=== PATIENT | male | born 1990 | race Caucasian/White ===

== ENCOUNTER 2018-11-15 13:57 | Emergency (ER) | payer SELFPAY ==
[2018-11-15] MEDS ORDERED: traMADol 50 MG Tab PO ONE (14:33)
[2018-11-15] MEDS ORDERED: Ketorolac 60 MG/2 ML SDV IM ONE (14:33)
[2018-11-15] MEDS ORDERED: Acetaminophen 325 MG Tab PO ONE (14:33)
--- NOTE | 2018-11-15 16:12 | EDM.PDOC ---
ED HPI GENERAL MEDICAL PROBLEM - General Chief Complaint: General Stated Complaint: GROIN PAIN Time Seen by Provider: 11/15/18 14:22 Source of Information: Reports: Patient, RN Notes Reviewed - History of Present Illness INITIAL COMMENTS - FREE TEXT/NARRATIVE: 28-year-old male had onset of left testicular and scrotal pain this morning about 6 hours ago. That continues with radiation of pain to the left groin and even left lower abdomen. He has never had anything like this before. He has had some mild nausea but no vomiting. Symptomatology. Or chills. He is not aware of any injury. He is not concerned about any STD exposure. No unusual urethral drainage or discharge. Groin Pain Score (Numeric/FACES): 10 - Related Data Allergies Allergy/AdvReac Type Severity Reaction Status Date / Time No Known Allergies Allergy Verified 11/15/18 14:07 Home Meds: Home Meds Doxycycline [Vibramycin] 100 mg PO BID #14 tab 11/15/18 [Rx] Naproxen [Naprosyn] 500 mg PO Q12HR #14 tab 11/15/18 [Rx] traMADol [Ultram] 50 mg PO Q6H PRN #14 tab 11/15/18 [Rx] Past Medical History - Past Health History Medical/Surgical History: Denies Medical/Surgical History Social & Family History - Tobacco Use Smoking Status *Q: Current Every Day Smoker Years of Tobacco use: 12 Packs/Tins Daily: 1 - Caffeine Use Caffeine Use: Reports: Soda - Recreational Drug Use Recreational Drug Use: No ED ROS GENERAL - Review of Systems Review Of Systems: See Below Constitutional: Denies: Fever, Chills HEENT: Denies: Throat Pain Respiratory: Reports: No Symptoms Cardiovascular: Denies: Chest Pain GI/Abdominal: Reports: Nausea. Denies: Abdominal Pain, Vomiting Musculoskeletal: Reports: No Symptoms Skin: Denies: Rash Neurological: Reports: No Symptoms ED EXAM, GENERAL - Physical Exam Exam: See Below General Appearance: Alert, Mild Distress Throat/Mouth: Normal Inspection Respiratory/Chest: No Respiratory Distress, Lungs Clear Cardiovascular: Regular Rate, Rhythm GI/Abdominal: Soft, Non-Tender, No Mass (Male) Exam: No Hernia, Scrotum Tenderness (L), Testicular Tenderness (L). No: Scrotal Swelling Extremities: Normal Inspection, Normal Range of Motion Neurological: Alert, Oriented, No Motor/Sensory Deficits Skin Exam: Warm, Dry, Normal Color Course - Vital Signs Last Recorded V/S: Last Vital Signs Temp 96.3 F 11/15/18 14:06 Pulse 77 11/15/18 14:06 Resp 15 11/15/18 14:06 BP 137/85 11/15/18 14:06 Pulse Ox 100 11/15/18 14:06 - Orders/Labs/Meds Labs: Laboratory Tests 11/15/18 Range/Units 16:15 Urine Color Yellow (Yellow) Urine Appearance Clear (Clear) Urine pH 6.5 (5.0-8.0) Ur Specific [place] 1.015 (1.005-1.030) Urine Protein Negative (Negative) Urine Glucose (UA) Negative (Negative) Urine Ketones Negative (Negative) Urine Occult Blood Negative (Negative) Urine Nitrite Negative (Negative) Urine Bilirubin Negative (Negative) Urine Urobilinogen 0.2 (0.2-1.0) Ur Leukocyte Esterase Negative (Negative) Urine RBC Not seen (0-5) /hpf Urine WBC Not seen (0-5) /hpf Ur Squamous Epith Cells Not seen (0-5) /hpf Urine Bacteria Occasional (FEW) /hpf Urine Mucus Few (FEW) /hpf Meds: Medications Discontinued Medications Generic Name Dose Route Start Last Admin Trade Name Morenita PRN Reason Stop Dose Admin Acetaminophen 975 mg 11/15/18 14:33 11/15/18 14:39 Tylenol PO 11/15/18 14:34 975 mg NOW ONE Administration Ketorolac Tromethamine 60 mg 11/15/18 14:33 11/15/18 14:39 Toradol IM 11/15/18 14:34 60 mg ONETIME ONE Administration Tramadol HCl 50 mg 11/15/18 14:33 11/15/18 14:39 Ultram PO 11/15/18 14:34 50 mg ONETIME ONE Administration - Re-Assessments/Exams Free Text/Narrative Re-Assessment/Exam: 11/17/18 21:05 Ultrasound, urine did come back normal, I am going to put him on doxycycline. Discharge instructions as documented Departure - Departure Time of Disposition: 18:27 Disposition: Home, Self-Care 01 Condition: Fair Clinical Impression: Epididymitis - Discharge Information Prescriptions: Naproxen [Naprosyn] 500 mg PO Q12HR #14 tab Doxycycline [Vibramycin] 100 mg PO BID #14 tab traMADol [Ultram] 50 mg PO Q6H PRN #14 tab PRN Reason: Pain Instructions: Epididymitis Referrals: PCP,None [Primary Care Provider] - Forms: ED Department Discharge Additional Instructions: Doxycycline 100 mg twice daily for 1 week, Naprosyn 500 mg twice a day, Tylenol 1000 mg 3 times daily for further pain relief if needed, take tramadol in addition if needed for severe pain not relieved by Naprosyn and Tylenol. Follow up with a clinic provider if you have not much better within 3-4 days as expected. Call [phone] for appt. Return to ED as needed if symptoms worsening in any way.
--- NOTE | 2018-11-17 13:42 | US ---
Testicular ultrasound: Multiple real-time images were obtained. Comparison: No prior testicular imaging. Testicles have a homogeneous ultrasound appearance. No intratesticular abnormality is seen. Slightly hypoechoic lesion is seen within the right epididymis measuring up to 6.5 mm. No additional epididymal abnormality is seen. Minimal hydroceles are seen believed to be incidental. Multiple lymph nodes are noted within the left inguinal region also believed to be incidental. Measurements: Right testicle: 4.1 x 2.2 x 2.9 cm Left testicle: 4.3 x 2.2 x 2.8 cm Impression: 1. Hypoechoic lesion within the right epididymis. This may represent complicated epididymal cyst versus solid lesion. Recommend follow-up testicular ultrasound in 6 months. Follow-up study could be obtained earlier if any change in clinical findings are present. 2. Minimal hydroceles. 3. No intratesticular abnormality is seen. Diagnostic code #9 I agree with preliminary report from [facility], finalized on 11/15/18, 7:09 PM Central Time
== END 2018-11-15 18:45 | disposition home or self-care (01) ==
LOC: JD.ED 13:57
DX: N45.1 Epididymitis (principal); F17.210 Nicotine dependence, cigarettes, uncomplicated
CPT/HCPCS: 76870; 81001; 93975; 96372; 99284; A9270; J1885